=== PATIENT | female | born 1965 | race Caucasian/White ===

== ENCOUNTER 2021-01-20 06:58 | Day surgery (SDC) | payer BC ==
[2021-01-18 11:08] LABS: BASOPHILS % (AUTO) 0.2 % (0.0-5.0); EOSINOPHILS % (AUTO) 0.2 % (0.0-8.0); HEMATOCRIT 38.5 % (36-48); LYMPHOCYTES % (AUTO) 14.6 % (21.0-51.0); MEAN CORPUSCULAR HEMOGLOBIN 22.9 pg (27.0-33.0); MEAN CORPUSCULAR HGB CONC 28.3 g/dL (32.0-36.0); MEAN CORPUSCULAR VOLUME 80.7 fL (79-99); MONOCYTES % (AUTO) 8.3 % (3.0-13.0); NEUTROPHILS % (AUTO) 75.8 % (40.0-77.0); PLATELET COUNT (AUTO) 360 K/uL (130-400); RED BLOOD CELL COUNT(AUTO) 4.77 MIL/uL (4.00-5.50); RED CELL DISTRIBUTION WIDTH 17.3 % (11.0-15.5); WHITE BLOOD COUNT (AUTO) 9.1 K/uL (4.8-10.8)
[2021-01-18 11:59] LABS: CREATININE 0.7 mg/dL (0.5-1.5); POTASSIUM 4.8 mmol/L (3.5-5.1)
[2021-01-19 10:57] VITALS: BP 169/79
[~2021-01-20] VITALS: Ht 177.8 cm; Wt 213.2 kg
[2021-01-20] VITALS (13 sets, daily range): BP systolic 117–163; BP diastolic 55–88
[~2021-01-20 06:58] MED LIST: AEC81 PO; CEFAZOLIN SODIUM 1 GM VIAL IVP SCH; CETI10TA57 PO; FLUT16H NASAL; FLUT50BL IH; FURO40TA5 PO; ISOS30TA92 PO; LACT1CAP80 PO; LEVO300T4 PO; MAGNESIUM PO; METF-444 PO; METO25TA6 PO; MONT10TA32 PO; PANT40TA54 PO; POTASSIUM PO; PRED20TA3 PO; PROG200C11 PO; SULF1TAB89 PO; VITA100049 PO
[2021-01-20] MEDS ORDERED: 0.9%NACL 1000ML 1,000 ML IV ONE (07:50)
[2021-01-20] MEDS ORDERED: MIDAZOLAM HCL 1 MG/ML 2ML VIAL ONE ×2 (08:47→09:00)
[2021-01-20] MEDS ORDERED: KETAMINE 50MG/ML SYRINGE 50 MG/ML DISP.SYRIN IV ONE (08:52)
[2021-01-20] MEDS ORDERED: LIDOCAINE HCL/EPINEPHRINE 30 ML VIAL IJ ONE (09:18)
[2021-01-20] MEDS ORDERED: ONDANSETRON 4MG INJ ONE (09:24)
[2021-01-20] MEDS ORDERED: PROPOFOL 10 MG/ML 20ML VIAL IV ONE ×2 (09:25→10:09)
[2021-01-20] MEDS ORDERED: HYDROCORTISONE SOD SUCCINATE 100 MG/2 ML VIAL ONE (09:35)
[2021-01-20] MEDS ORDERED: SOLU-MEDROL 40MG VIAL ONE (09:35)
[2021-01-20] MEDS ORDERED: SUCCINYLCHOLINE 200MG/10ML SYR ONE (09:42)
[2021-01-20] MEDS ORDERED: LIDOCAINE PF 100MG/5ML (2%) SYRINGE 5ML ONE (09:42)
== END 2021-01-20 12:21 | disposition home or self-care (01) ==
LOC: DAH 06:58
PROVIDERS: ATTEND Specialist
DX: N92.4 Excessive bleeding in the premenopausal period (principal); Z20.822 Contact with and (suspected) exposure to COVID-19; E66.01 Morbid (severe) obesity due to excess calories; I10 Essential (primary) hypertension; K21.9 Gastro-esophageal reflux disease without esophagitis; E03.9 Hypothyroidism, unspecified; Z86.79 Personal history of other diseases of the circulatory system; Z79.899 Other long term (current) drug therapy; Z98.890 Other specified postprocedural states; Z68.45 Body mass index [BMI] 70 or greater, adult
CPT/HCPCS: 36415; 58120; 80048; 82948 ×2; 85025; 86850; 86900; 86901; 87635; A4215; A4221; A4222; A4223; A4351; A4663; A6260; C9803; J0330; J1720; J2001; J2250 ×2; J2405; J2704 ×2; J3490; J7030 ×2; J2920